=== PATIENT | male | born 1980 | race Caucasian/White ===

== ENCOUNTER 2019-11-18 10:18 | Emergency (ER) | payer OTHER ==
--- NOTE | 2019-11-18 11:12 | ED ---
Eye Problem HPI - General Chief complaint: Eye Problems Stated complaint: rt eye injury, fall from boat Time Seen by Provider: 11/18/19 10:40 Source: patient Mode of arrival: ambulatory Limitations: no limitations - History of Present Illness Initial comments: 39-year-old male was denies severe past medical history aside from depression and anxiety presenting to the emergency department today for chief complaint of right facial injury. Patient states that while getting out of bowl on Monday he slipped striking the doc with the right side of his face. He states he sustained 2 lacerations one under his eye and one on the right upper side of his face. Patient denies loss of consciousness he denies any syncope stating he simply tripped and fell. Patient denies any changes in vision he denies diplopia. Patient denies noting any bulging of the eye. Patient states he noticed some swelling around the eye he denies any pain with extraocular eye movements. Patient states he does have pain in "the bones around eye". Patient states he did have a headache and merely after falling however this has subsided. Patient denies any nausea vomiting, weakness of the Ue or LE or difficulty ambulating. patient states his tetanus vaccine is UTD within last 10 days. Patient denies injury to the neck, denies neck pain, denies extremity, chest abdomen injury. Patient has no additional complaints. Upon arrival patient appears well there is no signs of acute distress. Obvious bruising/redness of right eye. - Related Data Previous Rx's Medication Instructions Recorded Cephalexin [Keflex] 500 mg PO Q6HR 7 Days #28 cap 11/18/19 Allergies Allergy/AdvReac Type Severity Reaction Status Date / Time No Known Allergies Allergy Verified 11/18/19 10:38 Review of Systems ROS Statement: Those systems with pertinent positive or pertinent negative responses have been documented in the HPI. ROS Other: All systems not noted in ROS Statement are negative. Past Medical History Additional Past Medical History / Comment(s): anxiety History of Any Multi-Drug Resistant Organisms: C-DIFF MDRO Source:: 2017 Past Surgical History: No Surgical Hx Reported Past Psychological History: Anxiety, Bipolar Smoking Status: Current every day smoker Past Alcohol Use History: None Reported Past Drug Use History: None Reported General Exam - General Exam Comments Initial Comments: General: The patient is awake and alert, in no distress, and does not appear acutely ill. Eye: +3 mm pupils are equal, round and reactive to light, extra-ocular movements are intact. No nystagmus. There is normal conjunctiva bilaterally. No signs of icterus. No APD. No pain with extraocular eye movements and visual [place] intact to confrontation. Visual acuity OS 20/25 OD 20/40 plus, 20/25 both eyes. Patient IOP 16 OD, 17OS. Periorbital ecchymosis no raccoon or Vazquez sign. orbital appear intact to palpation, some pain inferiorly along zygoma/zygomatic arch. Ears, nose, mouth and throat: There are moist mucous membranes and no oral lesions. Neck: The neck is supple, there is no tenderness or JVD. Cardiovascular: There is a regular rate and rhythm. No murmur, rub or gallop is appreciated. Respiratory: Lungs are clear to auscultation, respirations are non-labored, breath sounds are equal. No wheezes, stridor, rales, or rhonchi. Gastrointestinal: Soft, non-distended, non-tender abdomen without masses or organomegaly noted. There is no rebound or guarding present. No CVA tenderness. Bowel sounds are unremarkable. Musculoskeletal: Normal ROM, no tenderness. Strength 5/5. Sensation intact. Pulses equal bilaterally 2+. Neurological: A&O x 3. CN II-XII intact, There are no obvious motor or sensory deficits. Coordination appears grossly intact. Speech is normal. Skin: Skin is warm and dry and no rashes. Large 4 cm laceration approximately 3 inches below the eye on the right side of the face over the zygomatic arch/zygoma, granulation tissue present soft tissue swelling. 1-2cm laceration just below eye with granulatin tissue present Psychiatric: Cooperative, appropriate mood & affect, normal judgment. Limitations: no limitations Course Vital Signs 11/18/19 11/18/19 10:34 11:56 Temperature 98.7 F 98.6 F Pulse Rate 76 70 Respiratory 18 16 Rate Blood Pressure 136/87 131/84 O2 Sat by Pulse 99 99 Oximetry Medical Decision Making - Medical Decision Making 39-year-old male presenting for right-sided facial injury. There is healing lacerations occurring greater than [address] revealed zygoma /zygomatic arch fracture comminuted suspected open. Patient given IM antibiotics in the emergency department. EOM intact, no pain. No trismus or difficulty opening mouth. No acute intracranial process. Patient tdap UTD per patient. Patient [place] 2024 in affected eye. States left eye has always been his "bad eye" no corrective lenses. Patient IOP WNL. Pupils WNL. No areas of uptake of fluorescein examination no seidels sign. Patient be discharged with oral antibiotics, plastics/ENT f/u and recommended outpatient ophthalmology f/u for dilated retinal exam, no complaints consistent with retinal detachement more so for this history of eye trauma. Dr. Pickard agreeable to care plan. Disposition Clinical Impression: Zygomatic fracture, left side, initial encounter for open fracture, Zygoma fracture, Fall, Facial laceration Disposition: HOME SELF-CARE Condition: Good Instructions (If sedation given, give patient instructions): Facial Fracture (ED) Additional Instructions: Please use medication as discussed. Please follow-up with family doctor in the next 2 days, recommend plastic follow-up in 1 week (See Gerson), please follow-up with ophthalmology in the next week for dilated retinal examination Please return to emergency room if the symptoms increase or worsen or for any other concerns. Prescriptions: Cephalexin [Keflex] 500 mg PO Q6HR 7 Days #28 cap Is patient prescribed a controlled substance at d/c from ED?: No Referrals: Mike Martin MD [Primary Care Provider] - 1-2 days Jordan Chaudhary DO [Doctor of Osteopathic Medicine] - 1-2 days Nestor Mccarthy MD [STAFF PHYSICIAN] - 1-2 days Time of Disposition: 11:25
--- NOTE | 2019-11-18 11:16 | CT ---
EXAMINATION TYPE: CT facial bones wo con, CT brain wo con DATE OF EXAM: 11/18/2019 COMPARISON: NONE EXAMINATION TYPE: CT facial bones wo con, CT brain wo con DATE OF EXAM: 11/18/2019 COMPARISON: None. HISTORY: Fall injury with headache and facial pain CT DLP: Included in brain dose (accession [id number]), 729.6 (accession [id number]) mGycm. Automated Exp osure Control for Dose Reduction was Utilized. TECHNIQUE: CT scan of the head and facial bones are performed without contrast. FINDINGS: There is no acute intracranial hemorrhage, mass effect, or midline shift identified. The ventricles and sulci are within normal limits in size. Fountain-white matter differentiation is maintain ed. The calvarium is intact. Nasal bones are intact. Nasal septum slightly deviated to right of midline without fracture. Mandible is intact. Temporomandibular joints are maintained bilaterally. There is acute comminuted slightly d isplaced fracture through the right zygoma and anterior aspect zygomatic arch. Orbital floors and wal ls are intact bilaterally. Globes are intact bilaterally. Intraconal fat is preserved. There is moder ate preseptal soft tissue hematoma centered over the right zygoma lateral inferior aspect of orbit. P aranasal sinuses are grossly clear. Hypoplastic bilateral frontal sinuses are noted. Pterygoid plates are intact. IMPRESSION: 1. No acute intracranial hemorrhage or midline shift is seen. 2. Acute comminuted slightly displaced fracture through the right zygoma extending into the anterior portion of the zygomatic arch with moderate associated focal soft tissue hematoma. No intraorbital or maxillary wall/sinus extension noted.
[2019-11-18] MEDS ORDERED: ceFAZolin 1,000 MG VIAL (IM USE) IM STA (11:26)
[2019-11-18] MEDS ORDERED: FLUORESCEIN STRIPS 1 MG STRIP RIGHT EYE ONE (11:40)
[2019-11-18 12:04] VITALS: BP 131/84; PULSE 70; RESP 16; TEMP 98.6
== END 2019-11-18 12:04 | disposition home or self-care (01) ==
LOC: EC 10:18
DX: S02.40EB Zygomatic fracture, right side, initial encounter for open fracture (principal); F17.200 Nicotine dependence, unspecified, uncomplicated; W18.09XA Striking against other object with subsequent fall, initial encounter; Y92.814 Boat as the place of occurrence of the external cause
CPT/HCPCS: 70486; 70450; 99283; 96372; J0690

== ENCOUNTER 2021-01-27 11:30 | Emergency (ER) | payer OTHER ==
[2021-01-27 11:36] VITALS: BP 104/73; PULSE 78; RESP 18; TEMP 97.6
--- NOTE | 2021-01-27 12:41 | ED ---
Upper Extremity HPI - General Chief Complaint: Extremity Injury, Upper Stated Complaint: Lt Shoulder Injury Time Seen by Provider: 01/27/21 12:07 Source: patient Mode of arrival: ambulatory Limitations: no limitations - History of Present Illness Initial Comments: Patient is a 40-year-old male presenting to emergency Department with complaints of left shoulder discomfort for the past few days. Patient states he has a history of chronic left shoulder pain, has dislocated many times, he's had no previous surgeries of his left shoulder. He does not follow with an orthopedic physician. Over the past few days he's been doing a lot more physical activities such as lifting, moving boxes, doing a lot more activity at work, he states the last few days his pain is increased. Having trouble moving around. He feels like it could be dislocated again. He denies any falls or trauma, no fevers or chills. He has no further complaints. - Related Data Previous Rx's Medication Instructions Recorded cephALEXin [Keflex] 500 mg PO Q6HR 7 Days #28 cap 11/18/19 Allergies Allergy/AdvReac Type Severity Reaction Status Date / Time No Known Allergies Allergy Verified 01/27/21 11:36 Review of Systems ROS Statement: Those systems with pertinent positive or pertinent negative responses have been documented in the HPI. ROS Other: All systems not noted in ROS Statement are negative. Past Medical History Additional Past Medical History / Comment(s): anxiety History of Any Multi-Drug Resistant Organisms: C-DIFF MDRO Source:: 2016 Past Surgical History: No Surgical Hx Reported Past Psychological History: Anxiety, Bipolar Smoking Status: Current every day smoker Past Alcohol Use History: None Reported Past Drug Use History: None Reported General Exam - General Exam Comments Initial Comments: GENERAL: Patient is well-developed and well-nourished. Patient is nontoxic and in no ac [place] distress. HEAD: Atraumatic, normocephalic. EYES: Pupils equal round and reactive to light, extraocular movements intact, sclera anicteric, conjunctiva are normal. Eyelids were unremarkable. ENT: Moist mucous membranes. NECK: Normal range of motion, supple without lymphadenopathy or JVD. LUNGS: Unlabored respirations. Breath sounds clear to auscultation bilaterally and equal. No wheezes rales or rhonchi. HEART: Regular rate and rhythm without murmurs, rubs or gallops. MUSCULOSKELETAL: Decreased active range of motion left shoulder secondary to pain. He has pain over the anterior and lateral aspect of the left shoulder. No deformity seen or felt, he is neurovascular intact. No clubbing or cyanosis. NEUROLOGICAL: Patient is alert and oriented x 3. SKIN: Warm, Dry, normal turgor, no rashes or lesions noted. Limitations: no limitations Course Vital Signs 01/27/21 11:31 Temperature 97.6 F Pulse Rate 78 Respiratory 18 Rate Blood Pressure 104/73 O2 Sat by Pulse 98 Oximetry Procedures - Orthopedic Splinting/Casting Injury #1 Side: left Upper Extremity Injury Location: shoulder Upper Extremity Immobilizer: sling/shoulder immobilizer Medical Decision Making - Medical Decision Making Patient is a 32-year-old male here with left shoulder discomfort over the past few days. His been doing a lot of physical activity with that, previous history of chronic left shoulder pain and multiple locations. X-rays today for reveal no acute fractures dislocations. I discussed with him this is most likely overuse, rotator cuff strain. Recommended ice to the area, sling for comfort. He can take Tylenol or ibuprofen for pain. He has not seen orthopedics for this in the past, I will give her referral. He is in agreement with this plan of care and is stable for discharge. Disposition Clinical Impression: Left shoulder pain Disposition: HOME SELF-CARE Condition: Stable Instructions (If sedation given, give patient instructions): Shoulder Pain (ED) Additional Instructions: Please return to the Emergency Department if symptoms worsen or any other concerns. May use sling for comfort, recommend ice to the area, resting the left shoulder. May take Tylenol or ibuprofen for discomfort. Please follow up with orthopedics. Is patient prescribed a controlled substance at d/c from ED?: No Referrals: Mike Martin MD [Primary Care Provider] - 1-2 days Karthik Jimenez DO [Doctor of Osteopathic Medicine] - 1-2 days Time of Disposition: 13:14
--- NOTE | 2021-01-27 12:48 | XR ---
EXAMINATION TYPE: XR shoulder complete LT DATE OF EXAM: 01/27/2021 CLINICAL HISTORY: pain COMPARISON: NONE TECHNIQUE: Three views of the left shoulder are obtained. FINDINGS: There is no acute fracture/dislocation evident. The acromioclavicular and glenohumeral [place] int spaces appear within normal limits. The visualized ribs are intact and unremarkable. IMPRESSION: 1. There is no acute fracture or dislocation. ICD 10 NO FRACTURE, INITIAL EVALUATION
== END 2021-01-27 13:49 | disposition home or self-care (01) ==
LOC: EC 11:30
DX: M25.512 Pain in left shoulder (principal); F41.9 Anxiety disorder, unspecified; F31.9 Bipolar disorder, unspecified; F17.200 Nicotine dependence, unspecified, uncomplicated
CPT/HCPCS: 99283

== ENCOUNTER 2022-06-14 20:06 | Emergency (ER) | payer OTHER ==
[2022-06-14 20:15] VITALS: BP 147/79; PULSE 83; RESP 20; TEMP 98
[2022-06-14] MEDS ORDERED: BACITRACIN OINT 1 EACH PACKET TOPICAL ONE (20:31)
[2022-06-14] MEDS ORDERED: KETOROLAC 15 MG/ML 1 ML VIAL IVP STA (20:31)
[2022-06-14] MEDS ORDERED: KETOROLAC 15 MG/ML 1 ML VIAL IM STA (20:34)
--- NOTE | 2022-06-14 20:55 | ED ---
Burn/Smoke HPI - General Chief complaint: Burn/Smoke Inhalation Stated complaint: [facility]-burn to right hand Time Seen by Provider: 06/14/22 20:29 Source: patient Mode of arrival: ambulatory Limitations: no limitations - History of Present Illness Initial comments: Patient is a 41-year-old male who presents for evaluation of right hand burn. 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 Patient has blistering over the backside of his hand. He reports [id number] pain. No numbness or tingling. No issues with hand movement. - Related Data Previous Rx's Medication Instructions Recorded cephALEXin [Keflex] 500 mg PO Q6HR 7 Days #28 cap 11/18/19 Bacitracin Zinc/Polymyxin B 1 applic TOPICAL BID #15 gm 06/14/22 [Bacitracin-Polymyxin Ointment] Allergies Allergy/AdvReac Type Severity Reaction Status Date / Time No Known Allergies Allergy Verified 05/07/22 17:11 Review of Systems ROS Statement: Those systems with pertinent positive or pertinent negative responses have been documented in the HPI. ROS Other: All systems not noted in ROS Statement are negative. Past Medical History Additional Past Medical History / Comment(s): anxiety History of Any Multi-Drug Resistant Organisms: C-DIFF MDRO Source:: 2017 Past Surgical History: No Surgical Hx Reported Past Psychological History: Anxiety, Bipolar Smoking Status: Current every day smoker Past Alcohol Use History: None Reported Past Drug Use History: None Reported General Exam Limitations: no limitations General appearance: alert Head exam: Present: atraumatic, normocephalic, normal inspection Respiratory exam: Present: normal lung sounds bilaterally. Absent: respiratory distress, wheezes, rales, rhonchi, stridor Cardiovascular Exam: Present: regular rate, normal rhythm, normal heart sounds. Absent: systolic murmur, diastolic murmur, rubs, gallop, clicks Extremities exam: Present: other (second degree burn to right dorsal hand just proximal to the first and second MCP joint, approx 3 by 2 cm with blistering and blanching. No joint or digit involvement ) Neurological exam: Present: alert, oriented X3, CN II-XII intact Psychiatric exam: Present: normal affect, normal mood Skin exam: Present: warm, dry, intact, normal color. Absent: rash Course Vital Signs 06/14/22 20:12 Temperature 98 F Pulse Rate 83 Respiratory 20 Rate Blood Pressure 147/79 O2 Sat by Pulse 98 Oximetry Medical Decision Making - Medical Decision Making Was pt. sent in by a medical professional or institution (PAULETTE Mcfarland, [employer], urgent care, hospital, or halfway...) When possible be specific @ -[No] Did you speak to anyone other than the patient for history (EMS, parent, family, police, friend...)? What history was obtained from this source @ -[No] Did you review nursing and triage notes (agree or disagree)? Why? @ -[I reviewed and disagree. Burn does not involve digits. Were old charts reviewed (outside hosp., previous admission, EMS record, old EKG, old radiological studies, urgent care reports/EKG's, halfway records)? Report findings @ -[No old charts were reviewed] Differential Diagnosis (chest pain, altered mental status, abdominal pain women, abdominal pain men, vaginal bleeding, weakness, fever, dyspnea, syncope, headache, dizziness, GI bleed, back pain, seizure, CVA, palpatations, mental health)? @ -[not applicable] EKG interpreted by me (3pts min.). @ -[As above] X-rays interpreted by me (1pt min.). @ -[None done] CT interpreted by me (1pt min.). @ -[None done] U/S interpreted by me (1pt. min.). @ -[None done] What testing was considered but not performed or refused? (CT, X-rays, U/S, labs)? Why? @ -[None] What meds were considered but not given or refused? Why? @ -[None] Did you discuss the management of the patient with other professionals (professionals i.e. PAULETTE Mcfarland, [employer]PORATE BU[employer]ER, lab, RT, psych nurse, manager social services, soft tile setter, teacher, quarantine officer, shoe parts caser)? Give summary @ -[No] Was smoking cessation discussed for >3mins.? @ -[No] Was critical care preformed (if so, how long)? @ -[No] Were there social determinants of health that impacted care today? How? (Homelessness, low income, unemployed, alcoholism, drug addiction, transportation, low edu. Level, literacy, decrease access to med. care, fpc, rehab)? @ -[No] Was there de-escalation of care discussed even if they declined (Discuss DNR or withdrawal of care, Hospice)? DNR status @ -[No] What co-morbidities impacted this encounter? (DM, HTN, Smoking, COPD, CAD, Cancer, CVA, ARF, Chemo, Hep., AIDS, mental health diagnosis, sleep apnea, morbid obesity)? @ -[None] Was patient admitted / discharged? Hospital course, mention meds given and route, prescriptions, significant lab abnormalities, going to OR and other pertinent info. @ -This is a 41-year-old male presenting with second-degree partial-thickness burn. No joint involvement, non-circumferential. Patient given Toradol and bacitracin ointment applied. Burn dressing applied. Burn occupies small area of hand, no need for referral to burn clinic. Patient already has Motrin at home for pain. He will be sent home with bacitracin and wound dressings, Undiagnosed new problem with uncertain prognosis? @ -[No] Drug Therapy requiring intensive monitoring for toxicity (Heparin, Nitro, Insulin, Cardizem)? @ -[No] Were any procedures done? @ -[No] Diagnosis/symptom? @ -second degree partial thickness burn Acute, or Chronic, or Acute on Chronic? @ -acute Uncomplicated (without systemic symptoms) or Complicated (systemic symptoms)? @ -uncomplicated Side effects of treatment? @ -[No] Exacerbation, Progression, or Severe Exacerbation? @ -[No] Poses a threat to life or bodily function? How? (Chest pain, USA, OR, pneumonia, PE, COPD, DKA, ARF, appy, cholecystitis, CVA, Diverticulitis, Homicidal, Suicidal, threat to staff... and all critical care pts) @ -[No] Dr. Cameron is my attending. Disposition Clinical Impression: Second degree burn Disposition: HOME SELF-CARE Condition: Good Instructions (If sedation given, give patient instructions): Second-Degree Burn (ED) Additional Instructions: Apply ointment as directed. Apply new burn dressings every 24 hours. Take home prescription of Motrin for pain. Return to the emergency department experience new, concerning, or worsening symptoms. Prescriptions: Bacitracin Zinc/Polymyxin B [Bacitracin-Polymyxin Ointment] 1 applic TOPICAL BID #15 gm Is patient prescribed a controlled substance at d/c from ED?: No Referrals: Mike Martin MD [Primary Care Provider] - 1-2 days
== END 2022-06-14 21:16 | disposition home or self-care (01) ==
LOC: EC 20:06
DX: T23.201A Burn of second degree of right hand, unspecified site, initial encounter (principal); F41.9 Anxiety disorder, unspecified; F31.9 Bipolar disorder, unspecified; F17.200 Nicotine dependence, unspecified, uncomplicated; X11.1XXA Contact with running hot water, initial encounter; Y92.63 Factory as the place of occurrence of the external cause
CPT/HCPCS: 99283; 96372; 16020; J1885

== ENCOUNTER → 2023-05-19 | Outpatient (CLI) | payer OTHER ==
--- NOTE | 2023-05-21 21:54 | MR ---
EXAMINATION TYPE: MR shoulder RT wo con DATE OF EXAM: 05/19/2023 COMPARISON: No radiographic correlation available HISTORY: 42-year-old male M7 5.121 Rt rotator cuff tear or rupture, pain x 10 mths TECHNIQUE: Multiplanar, multisequence imaging of the right shoulder is performed without contrast. FINDINGS: The long head biceps tendon appears intact and appropriately situated along the bicipital g roove. There is intrasubstance change of the middle third fibers of the subscapularis tendon, possible inser tional intrasubstance tear measuring 6 x 5 mm. The majority of the tendon remains intact. There is at least moderate degenerative change at the acromioclavicular joint but with fairly severe subchondral osseous edema and periarticular capsular edema. Extensive subchondral cystic changes also present. The coracoclavicular ligaments remain intact. Both supraspinatus and infraspinatus tendons are intact. No effusion within the subacromial/subdeltoi d bursa. The glenohumeral joint is intact. However, there is linear signal within the glenoid labrum along the posterior superior quadrant with a large paralabral cyst measuring 3.5 cm long and 1.8 x 1.3 cm. This extends along the superior aspec t of the glenohumeral joint medially to the suprascapular notch region. No abnormal edema or atrophy of the rotator cuff musculature. No Hill-Sachs deformity or os acromiale. Some patchy red marrow hyperplasia most likely reflecting pa tient's age. Correlate to exclude any smoking. IMPRESSION : 1. Moderate AC joint OA but with fairly severe osseous edema and periarticular soft tissue edema at t he AC joint. Findings may reflect acute exacerbation of underlying OA versus edema reactive to ongoin g microtrauma. 2. SLAP tear with a large paralabral cyst measuring up to 3.5 cm extending into the suprascapular not ch. No abnormal muscle edema or rotator cuff muscle atrophy. 3. Subscapularis tendinosis with intrasubstance change. No discrete rotator cuff tear.
== END | disposition home or self-care (01) ==
LOC: RADMRIMAIN 12:36
PROVIDERS: ATTEND Orthopaedic Surgery
DX: M75.121 Complete rotator cuff tear or rupture of right shoulder, not specified as traumatic (principal); M89.511 Osteolysis, right shoulder; M19.011 Primary osteoarthritis, right shoulder; M79.89 Other specified soft tissue disorders; M67.813 Other specified disorders of tendon, right shoulder; M71.311 Other bursal cyst, right shoulder